=== PATIENT | female | born 1990 | race American Indian/Alaskan Native ===

== ENCOUNTER 2016-07-01 13:10 | Emergency (ER) | payer MEDICAID, OTHER ==
[2016-07-01 15:54] VITALS: BP 105/71
--- NOTE | 2016-07-01 16:58 | Emergency Department Report ---
Entered by LINDSAY CASTILLO, acting as scribe for KAIN PIERSON PA. - General Chief complaint: Skin/Abscess/Foreign Body Stated complaint: RISEN UNDER BILAT ARMS/BUG BITES Time Seen by Provider: 07/01/16 14:59 Source: patient Mode of arrival: Ambulatory Limitations: No Limitations - History of Present Illness Initial comments: 26 y/o female presents c/o bilateral axillary lesions that have been going on intermittently for years. Sx include drainage from an open, right axillary lesion but pt denies fever, N/V or any other drainage sites. No additional Sx MD complaint: abscess/boil -: week(s) (1) Location: LUE (axillary region), RUE (axillary region) Severity: mild Quality: constant Consistency: constant Improves with: none Context: other (lesions occured after shaving axillary region) Treatments Prior to Arrival: none - Related Data Previous Rx's Medication Instructions Recorded Last Taken Type Amoxicillin/K Clav Tab [Augmentin 1 tab PO Q12HR #20 tab 10/27/14 Unknown Rx 875MG TAB] Fluticasone [Flonase] 2 spray NS QDAY #1 bottle 10/27/14 Unknown Rx Loratadine [Claritin] 10 mg PO DAILY #30 tablet 10/27/14 Unknown Rx Promethazine /Codeine 5 ml PO Q6H PRN #150 udc 10/27/14 Unknown Rx [Phenergan/Codeine 6.25-10 mg/5 ml] predniSONE [Deltasone] 40 mg PO QDAY #10 tab 10/27/14 Unknown Rx Ibuprofen [Motrin 800 MG tab] 800 mg PO Q8HR PRN #30 tablet 07/01/16 Unknown Rx Sulfamethoxazole/Trimethoprim 1 each PO BID #20 tablet 07/01/16 Unknown Rx [Bactrim DS TAB] Allergies Allergy/AdvReac Type Severity Reaction Status Date / Time No Known Allergies Allergy Verified 05/08/13 14:32 Abscess Boil HPI - HPI Chief Complaint: Skin/Abscess/Foreign Body Stated Complaint: RISEN UNDER BILAT ARMS/BUG BITES Time Seen by Provider: 07/01/16 14:59 Home Medications: Previous Rx's Medication Instructions Recorded Last Taken Type Amoxicillin/K Clav Tab [Augmentin 1 tab PO Q12HR #20 tab 10/27/14 Unknown Rx 875MG TAB] Fluticasone [Flonase] 2 spray NS QDAY #1 bottle 10/27/14 Unknown Rx Loratadine [Claritin] 10 mg PO DAILY #30 tablet 10/27/14 Unknown Rx Promethazine /Codeine 5 ml PO Q6H PRN #150 udc 10/27/14 Unknown Rx [Phenergan/Codeine 6.25-10 mg/5 ml] predniSONE [Deltasone] 40 mg PO QDAY #10 tab 10/27/14 Unknown Rx Ibuprofen [Motrin 800 MG tab] 800 mg PO Q8HR PRN #30 tablet 07/01/16 Unknown Rx Sulfamethoxazole/Trimethoprim 1 each PO BID #20 tablet 07/01/16 Unknown Rx [Bactrim DS TAB] Allergies/Adverse Reactions: Allergies Allergy/AdvReac Type Severity Reaction Status Date / Time No Known Allergies Allergy Verified 05/08/13 14:32 ED Review of Systems Comment: All other systems reviewed and negative Constitutional: denies: fever Gastrointestinal: denies: nausea, vomiting Skin: other (drainage from one lesiono on right axillary region) ED Past Medical Hx - Past Medical History Hx Hypertension: Yes (PIH) Hx Congestive Heart Failure: No Hx Diabetes: No Hx Deep Vein Thrombosis: No Hx Renal Disease: No Hx Sickle Cell Disease: No Hx Seizures: No Hx Asthma: No Hx COPD: No Hx HIV: No - Social History Smoking Status: Never Smoker Substance Use Type: None - Medications Home Medications: Home Medications Medication Instructions Recorded Confirmed Last Taken Type Amoxicillin/K Clav Tab [Augmentin 1 tab PO Q12HR #20 tab 10/27/14 Unknown Rx 875MG TAB] Fluticasone [Flonase] 2 spray NS QDAY #1 bottle 10/27/14 Unknown Rx Loratadine [Claritin] 10 mg PO DAILY #30 tablet 10/27/14 Unknown Rx Promethazine /Codeine 5 ml PO Q6H PRN #150 udc 10/27/14 Unknown Rx [Phenergan/Codeine 6.25-10 mg/5 ml] predniSONE [Deltasone] 40 mg PO QDAY #10 tab 10/27/14 Unknown Rx Ibuprofen [Motrin 800 MG tab] 800 mg PO Q8HR PRN #30 tablet 07/01/16 Unknown Rx Sulfamethoxazole/Trimethoprim 1 each PO BID #20 tablet 07/01/16 Unknown Rx [Bactrim DS TAB] ED Physical Exam - General Limitations: No Limitations - Other Other exam information: GENERAL: Patient is alert and oriented x 3. No apparent distress, normal gait, atraumatic. HEAD: Head is normocephalic and atraumatic. EYES: Extraocular movements are intact. NECK: Supple. Non edematous, no carotid bruits. No lymphadenopathy or thyromegaly. LUNGS: Symmetrical with respiration. No wheezing, rales or crackles, CTAB. HEART: Regular rate and rhythm with normal S1/S2 present. No murmurs, rubs, or gallops. ABDOMEN: Soft, nondistended. Nontender to palpation on all quadrants. No organomegaly was noted. Positive bowel sounds. No CVA tenderness. EXTREMITIES/MUSCULOSKELETAL: No cyanosis, clubbing, rash, lesions or edema. Full ROM bilaterally. UE/LE Pulses 2+ bilaterally. LE and UE 5+ strength bilaterally SKIN: Warm and dry, no ulceration or induration present. Bilateral axillary lesions closed, right open axillary lesion, no active drainage, no swelling, no erythema. Eyes, will comply, close lesions in the axilla bilaterally. Nontender to palpation NEUROLOGIC: No focal deficit. ED Course Vital Signs 07/01/16 14:40 Temperature 98 F Pulse Rate 65 Respiratory 20 Rate Blood Pressure 130/78 O2 Sat by Pulse 100 Oximetry ED Medical Decision Making - Medical Decision Making 26-year-old female presents with adenitis Discussed with patient take medication as prescribed Discussed with patient to follow up with PCP as referred, and to return to the ED if her symptoms return or worsen. Patient states understanding and will follow instructions. Vital signs stable, patient is in no acute distress. ED Disposition Clinical Impression: Axillary adenitis Disposition: DISCHARGED TO HOME OR SELFCARE Is pt being admited?: No Does the pt Need Aspirin: No Condition: Stable Instructions: Adenitis (ED) Prescriptions: Ibuprofen [Motrin 800 MG tab] 800 mg PO Q8HR PRN #30 tablet PRN Reason: Pain Sulfamethoxazole/Trimethoprim [Bactrim DS TAB] 1 each PO BID #20 tablet Referrals: PRIMARY MD DAVID [Primary Care Provider] - 3-5 Days DEONTE MEDELLIN MD [Referring] - 3-5 Days [facility] [Outside] - 3-5 Days [facility] [Outside] - 3-5 Days [facility] [Outside] - 3-5 Days [facility] [Outside] - 3-5 Days Forms: Work/School Release Form(ED) Time of Disposition: 15:30 This documentation as recorded by the ANNA zaman RYAN,accurately reflects the service I personally performed and the decisions made by ,KAIN PIERSON PA.
== END 2016-07-01 15:54 | disposition home or self-care (01) ==
LOC: ED 13:10
DX: I88.9 Nonspecific lymphadenitis, unspecified (principal); I10 Essential (primary) hypertension
CPT/HCPCS: 99282

== ENCOUNTER 2017-01-26 06:23 | Emergency (ER) | payer MEDICAID ==
[2017-01-26 07:21] LABS: Basophils % (Auto) 0.7 % (0.0-1.8); Eosinophils % (Auto) 1.8 % (0.0-4.3); Hematocrit 35.5 % (30.3-42.9); Hemoglobin 11.5 gm/dl (10.1-14.3); Mean Corpuscular HGB Conc 32 % (30-34); Mean Corpuscular Volume 79 fl (79-97); Platelet Count 260 K/mm3 (140-440); Red Cell Distribution Width 15.6 % (13.2-15.2); White Blood Count 6.4 K/mm3 (4.5-11.0)
[2017-01-26 07:22] LABS: Mean Corpuscular Hemoglobin 26 pg (28-32)
[2017-01-26 07:41] LABS: Anion Gap 17 mmol/L; BUN/Creatinine Ratio 17; Blood Urea Nitrogen 10 mg/dL (7-17); Calcium 9.3 mg/dL (8.4-10.2); Carbon Dioxide 26 mmol/L (22-30); Chloride 101.4 mmol/L (98-107); Glucose 99 mg/dL (65-100); Potassium 4.4 mmol/L (3.6-5.0); Sodium 140 mmol/L (137-145)
[2017-01-26] MEDS ORDERED: TORADOL IM ONE (10:51)
--- NOTE | 2017-01-26 11:02 | Emergency Department Report ---
ED Chest Pain HPI - General Chief Complaint: Upper Respiratory Infection Stated Complaint: CP Time Seen by Provider: 01/26/17 10:18 Source: patient Mode of arrival: Ambulatory Limitations: No Limitations - History of Present Illness Initial Comments: 26 year old female with a history of -induced hypertension presents to the hospital with complaints of chest pain since 1:00 last night. Pain is sharp , parasternal, worse with deep inspiration, movement in certain positions, and stretching. Pain is rated moderate in intensity. No complaints of shortness of breath, nausea, vomiting, calf tenderness, edema, recent travel, control pill use, or history of previous PE/DVT. Patient added that she had abnormal vaginal discharge 2 weeks and sexually active with one partner previously and did not use condoms Severity scale (0 -10): 8 - Related Data Previous Rx's Medication Instructions Recorded Last Taken Type Amoxicillin/K Clav Tab [Augmentin 1 tab PO Q12HR #20 tab 10/27/14 Unknown Rx 875MG TAB] Fluticasone [Flonase] 2 spray NS QDAY #1 bottle 10/27/14 Unknown Rx Loratadine [Claritin] 10 mg PO DAILY #30 tablet 10/27/14 Unknown Rx Promethazine /Codeine 5 ml PO Q6H PRN #150 udc 10/27/14 Unknown Rx [Phenergan/Codeine 6.25-10 mg/5 ml] predniSONE [Deltasone] 40 mg PO QDAY #10 tab 10/27/14 Unknown Rx Sulfamethoxazole/Trimethoprim 1 each PO BID #20 tablet 07/01/16 Unknown Rx [Bactrim DS TAB] Ibuprofen [Motrin 800 MG tab] 800 mg PO Q8HR PRN #30 tablet 01/26/17 Unknown Rx traMADol [Ultram 50 MG tab] 50 mg PO Q6HR PRN #20 tablet 01/26/17 Unknown Rx Allergies Allergy/AdvReac Type Severity Reaction Status Date / Time No Known Allergies Allergy Verified 05/08/13 14:32 Heart Score - HEART Score History: Slightly suspicious EKG: Normal Age: < 45 Risk factors: No known risk factors Troponin: < normal limit HEART Score: 0 ED Review of Systems ROS: Stated complaint: CP Other details as noted in HPI Comment: All other systems reviewed and negative Other: Constitutional: No fevers chills Eyes: No eye pain visual changes ENT: No ear pain or throat pain Neck: Denies pain Respiratory: Denies cough wheezing shortness Cardiovascular: Denies palpitations, syncope GI: Denies abdominal pain, nausea, vomiting, diarrhea : Denies dysuria Musculoskeletal: Denies back pain Skin: Denies rash, lesions, erythema Neurologic: Denies headache, numbness, weakness Psychiatric: Denies suicidal ideation, hallucinations ED Past Medical Hx - Past Medical History Hx Hypertension: Yes (PIH) Hx Congestive Heart Failure: No Hx Diabetes: No Hx Deep Vein Thrombosis: No Hx Renal Disease: No Hx Sickle Cell Disease: No Hx Seizures: No Hx Asthma: No Hx COPD: No Hx HIV: No - Surgical History Past Surgical History?: No - Social History Smoking Status: Never Smoker Substance Use Type: Alcohol, Marijuana - Medications Home Medications: Home Medications Medication Instructions Recorded Confirmed Last Taken Type Amoxicillin/K Clav Tab [Augmentin 1 tab PO Q12HR #20 tab 10/27/14 Unknown Rx 875MG TAB] Fluticasone [Flonase] 2 spray NS QDAY #1 bottle 10/27/14 Unknown Rx Loratadine [Claritin] 10 mg PO DAILY #30 tablet 10/27/14 Unknown Rx Promethazine /Codeine 5 ml PO Q6H PRN #150 udc 10/27/14 Unknown Rx [Phenergan/Codeine 6.25-10 mg/5 ml] predniSONE [Deltasone] 40 mg PO QDAY #10 tab 10/27/14 Unknown Rx Sulfamethoxazole/Trimethoprim 1 each PO BID #20 tablet 07/01/16 Unknown Rx [Bactrim DS TAB] Ibuprofen [Motrin 800 MG tab] 800 mg PO Q8HR PRN #30 tablet 01/26/17 Unknown Rx traMADol [Ultram 50 MG tab] 50 mg PO Q6HR PRN #20 tablet 01/26/17 Unknown Rx ED Physical Exam - General Limitations: No Limitations - Other Other exam information: General: No limitations, patient is alert in no acute distress Head exam: Atraumatic, normocephalic Eyes exam: Normal appearanc ENT: Moist mucous membrane, normal oropharynx Neck exam: Normal inspection, full range of motion, no meningismus nontender Respiratory exam: Clear to auscultation bilateral, no wheezes, rales, crackles Cardiovascular: Normal rate and rhythm, normal heart sounds, mild tenderness left parasternal area Abdomen: Soft, nondistended, and nontender, with normal bowel sounds, no rebound, or guarding exam: Declined Extremity: Full range of motion normal inspection no deformity, no calf tenderness or edema Back: Normal Inspection, full range of motion, no tenderness Neurologic: Alert, oriented x3, cranial nerves intact, no motor or sensory deficit Psychiatric: normal affect, normal mood Skin: Warm, dry, intact ED Course Vital Signs 01/26/17 01/26/17 01/26/17 06:37 07:03 07:57 Temperature 98.5 F 98.5 F 98.4 F Pulse Rate 90 90 80 Respiratory 18 16 16 Rate Blood Pressure 121/78 Blood Pressure 125/79 [Left] Blood Pressure 121/78 [Right] O2 Sat by Pulse 100 100 99 Oximetry 01/26/17 10:14 Temperature Pulse Rate 84 Respiratory 16 Rate Blood Pressure Blood Pressure 121/76 [Left] Blood Pressure [Right] O2 Sat by Pulse 100 Oximetry - Reevaluation(s) Reevaluation #1: 01/26/17 10:54 Toradol IM ordered for pain. Chest x-ray ordered. Patient declined pelvic exam because she needs to leave for previously scheduled appointment YADIRA score - Yadira Score Age > 65: (0) No Aspirin use within the Past 7 Days: (0) No 3 or more CAD Risk Factors: (0) No 2 or more Angina events in past 24 hrs: (0) No Known CAD with more than 50% Stenosis: (0) No ST Deviation Greater than 0.5mm: (0) No ED Medical Decision Making - Lab Data Result diagrams: 01/26/17 07:12 01/26/17 07:12 Lab Results 01/26/17 01/26/17 01/26/17 Range/Units 07:12 07:12 07:12 WBC 6.4 (4.5-11.0) K/mm3 RBC 4.50 (3.65-5.03) M/mm3 Hgb 11.5 (10.1-14.3) gm/dl Hct 35.5 (30.3-42.9) % MCV 79 (79-97) fl MCH 26 L (28-32) pg MCHC 32 (30-34) % RDW 15.6 H (13.2-15.2) % Plt Count 260 (140-440) K/mm3 Lymph % (Auto) 39.4 H (13.4-35.0) % Morris % (Auto) 5.9 (0.0-7.3) % Eos % (Auto) 1.8 (0.0-4.3) % Baso % (Auto) 0.7 (0.0-1.8) % Lymph # 2.5 (1.2-5.4) K/mm3 Morris # 0.4 (0.0-0.8) K/mm3 Eos # 0.1 (0.0-0.4) K/mm3 Baso # 0.0 (0.0-0.1) K/mm3 Seg Neutrophils % 52.2 (40.0-70.0) % Seg Neutrophils # 3.3 (1.8-7.7) K/mm3 Sodium 140 (137-145) mmol/L Potassium 4.4 (3.6-5.0) mmol/L Chloride 101.4 (98-107) mmol/L Carbon Dioxide 26 (22-30) mmol/L Anion Gap 17 mmol/L BUN 10 (7-17) mg/dL Creatinine 0.6 L (0.7-1.2) mg/dL Estimated GFR > 60 ml/min BUN/Creatinine Ratio 17 % Glucose 99 (65-100) mg/dL Calcium 9.3 (8.4-10.2) mg/dL Troponin T < 0.010 (0.00-0.029) ng/mL HCG, Quant < 2 (0-4) mIU/mL - EKG Data -: EKG Interpreted by Ga EKG shows normal: sinus rhythm, axis (qrs 40), QRS complexes (102), ST-T waves ( no stemi/t wave inv) Rate: normal (75) - EKG Data When compared to previous EKG there are: previous EKG unavailable - Radiology Data Radiology results: report reviewed (cxr 2 view: unremarkable) - Medical Decision Making Plan to discharge patient home with symptomatic treatment for muscular skeletal chest pain. EKG unremarkable, labs are unremarkable, chest x-ray unremarkable, no DVT symptoms. No DVT/PE risk factors. - Differential Diagnosis costochondritis, PE, pleurisy, pneumothorax, [facility] Critical Care Time: No Critical care attestation.: If time is entered above; I have spent that time in minutes in the direct care of this critically ill patient, excluding procedure time. ED Disposition Clinical Impression: Costochondritis, acute Disposition: DC-01 TO HOME OR SELFCARE Is pt being admited?: No Does the pt Need Aspirin: No Condition: Stable Instructions: Costochondritis (ED) Additional Instructions: Taken medication as needed for pain. Return if symptoms worsen Prescriptions: Ibuprofen [Motrin 800 MG tab] 800 mg PO Q8HR PRN #30 tablet PRN Reason: Pain traMADol [Ultram 50 MG tab] 50 mg PO Q6HR PRN #20 tablet PRN Reason: Pain Referrals: [facility] [Provider Group] - 3-5 Days DANIELA ARREDONDO MD, PHD [Staff Physician] - 3-5 Days Time of Disposition: 11:43
--- NOTE | 2017-01-26 11:31 | XRay Report ---
ROUTINE CHEST, TWO VIEWS: HISTORY: chest pain. The trachea, heart, mediastinal contour, lung dewitt and bony thorax are unremarkable. IMPRESSION: Unremarkable chest x-ray.
[2017-01-26 12:28] VITALS: BP 121/75
== END 2017-01-26 12:28 | disposition home or self-care (01) ==
LOC: ED 06:23
DX: M94.0 Chondrocostal junction syndrome [Tietze] (principal); I10 Essential (primary) hypertension; Z12.10 Encounter for screening for malignant neoplasm of intestinal tract, unspecified
CPT/HCPCS: 36415; 71020; 80048; 84484; 84702; 85025; 93005; 93010; 96372; 99284; J1885

== ENCOUNTER 2018-08-23 23:02 | Emergency (ER) | payer MEDICAID, OTHER ==
[2018-08-24 00:49] LABS: Basophils % (Auto) 0.3 % (0.0-1.8); Eosinophils % (Auto) 0.1 % (0.0-4.3); Hematocrit 35.6 % (30.3-42.9); Hemoglobin 11.9 gm/dl (10.1-14.3); Lymphocytes # (Auto) 1.8 K/mm3 (1.2-5.4); Lymphocytes % (Auto) 25.7 % (13.4-35.0); Mean Corpuscular HGB Conc 33 % (30-34); Mean Corpuscular Volume 79 fl (79-97); Monocytes # (Auto) 0.5 K/mm3 (0.0-0.8); Monocytes % (Auto) 7.7 % (0.0-7.3); Platelet Count 226 K/mm3 (140-440); Red Blood Count 4.49 M/mm3 (3.65-5.03); Red Cell Distribution Width 14.7 % (13.2-15.2)
[2018-08-24 01:13] LABS: Alanine Aminotransferase 11 units/L (7-56); Albumin 4.2 g/dL (3.9-5); BUN/Creatinine Ratio 11; Blood Urea Nitrogen 10 mg/dL (7-17); Calcium 9.6 mg/dL (8.4-10.2); Hemolysis Index 0
[2018-08-24 03:49] LABS: Bilirubin,Urine NEG (Negative); Blood,Urine SM (Negative); Color,Urine Yellow (Yellow); Mucus,Urine FEW /HPF; WBC,Urine > 182.0 /HPF (0.0-6.0)
[2018-08-24] MEDS ORDERED: MACROBID PO ONE (04:18)
--- NOTE | 2018-08-24 04:42 | Ultrasound Report ---
PROCEDURE: US OB <= 14 WEEKS FETUS TECHNIQUE: Real-time transabdominal sonography of the uterus, placenta, amniotic fluid, adnexa, and fetus was performed with image documentation. Measurements were obtained to determine age/size. M-mode Doppler was used to document heartbeat. ADDITIONAL GESTATION: None. HISTORY: , abd pain COMPARISONS: None . FINDINGS: The uterus size is 6.7 x 4.4 x 5.3 cm. There is a small gestational sac identified within the lower u terine segment. This measures up to 8 mm. No evidence of a pole or yolk sac. Both ovaries have a normal size and echogenicity. There is a cystic region on the left ovary this measures up to 21 mm. The findings may represent multiple etiologies including early or failure. Follow -up studies may be required and could include serial beta-hCG levels and repeat ultrasound in approxi mately 14 days IMPRESSION: There is a small gestational sac identified in the lower uterus. This measures up to 8 mm . The findings may indicate early or failure. Follow-up study may be needed in th is patient as described. There is a dominant cyst on the left ovary this measures up to 21 mm. This document is electronically signed by Martha Marcano DO., August 24 2018 04:40:18 AM ET
--- NOTE | 2018-08-24 05:00 | Emergency Department Report ---
HPI - General Chief Complaint: Abdominal Pain Time Seen by Provider: 08/24/18 02:54 - HPI HPI: 28-year-old female presents to the emergency department with a complaint of lower abdominal and/or pelvic pain as well as some intermittent sub jective fevers and been going on since Tuesday, 3 days ago. Patient says that she was eating at the [employer] and was unable to finish her meal because of the discomfort. She denies any nausea, vomiting. She was given a dose of Mucinex by her grandmother to treat her symptoms. Patient has been having some dysuria and thinks she might have a urinary tract infection. Her last menstrual cycle was about July 24. No recent travel or sick contacts at home. ED Past Medical Hx - Past Medical History Previous Medical History?: Yes Hx Hypertension: Yes (PIH) Hx Congestive Heart Failure: No Hx Diabetes: No Hx Deep Vein Thrombosis: No Hx Renal Disease: No Hx Sickle Cell Disease: No Hx Seizures: No Hx Asthma: No Hx COPD: No Hx HIV: No - Surgical History Past Surgical History?: No - Social History Smoking Status: Current Every Day Smoker Substance Use Type: None - Medications Home Medications: Home Medications Medication Instructions Recorded Confirmed Last Taken Type Amoxicillin/K Clav Tab [Augmentin 1 tab PO Q12HR #20 tab 10/27/14 Unknown Rx 875MG TAB] Fluticasone [Flonase] 2 spray NS QDAY #1 bottle 10/27/14 Unknown Rx Loratadine [Claritin] 10 mg PO DAILY #30 tablet 10/27/14 Unknown Rx Promethazine /Codeine 5 ml PO Q6H PRN #150 udc 10/27/14 Unknown Rx [Phenergan/Codeine 6.25-10 mg/5 ml] predniSONE [Deltasone] 40 mg PO QDAY #10 tab 10/27/14 Unknown Rx Sulfamethoxazole/Trimethoprim 1 each PO BID #20 tablet 07/01/16 Unknown Rx [Bactrim DS TAB] Ibuprofen [Motrin 800 MG tab] 800 mg PO Q8HR PRN #30 tablet 01/26/17 Unknown Rx traMADol [Ultram 50 MG tab] 50 mg PO Q6HR PRN #20 tablet 01/26/17 Unknown Rx Nitrofurantoin [place]/M-Cryst 100 mg PO Q12HR #14 capsule 08/24/18 Unknown Rx [Macrobid CAP] Vit-Fe Fumar-FA [ 1 tab PO QDAY #30 tablet 08/24/18 Unknown Rx Vitamin] ED Review of Systems ROS: Stated complaint: STOMACH PAIN FEVER Other details as noted in HPI Comment: All other systems reviewed and negative Constitutional: fever (subjective). denies: malaise Eyes: denies: eye pain, vision change ENT: denies: ear pain, throat pain Respiratory: denies: cough, shortness of breath Cardiovascular: denies: chest pain, palpitations Gastrointestinal: abdominal pain. denies: nausea, vomiting Genitourinary: dysuria. denies: discharge Musculoskeletal: denies: back pain, arthralgia Skin: denies: rash, lesions Neurological: denies: headache, weakness Physical Exam - Physical Exam Vital Signs: Vital Signs 08/23/18 23:38 Temperature 99.2 F Pulse Rate 103 H Respiratory 16 Rate Blood Pressure 127/78 O2 Sat by Pulse 100 Oximetry Physical Exam: GENERAL: The patient is well-developed well-nourished. HENT: Normocephalic. Atraumatic. Patient has moist mucous membranes. EYES: Extraocular motions are intact. NECK: Supple. Trachea is midline. CHEST/LUNGS: Clear to auscultation. There is no respiratory distress noted. HEART/CARDIOVASCULAR: Regular. There is no tachycardia. There is no murmur. ABDOMEN: Abdomen is soft. There is some mild lower abdominal tenderness to palpation. No guarding. Patient has normal bowel sounds. There is no abdominal distention. SKIN: Skin is warm and dry. NEURO: The patient is awake, alert, and oriented. The patient is cooperative. The patient has no focal neurologic deficits. The patient has normal speech. MUSCULOSKELETAL: There is no tenderness or deformity. There is no limitation range of motion. There is no evidence of acute injury. ED Course Vital Signs 08/23/18 23:38 Temperature 99.2 F Pulse Rate 103 H Respiratory 16 Rate Blood Pressure 127/78 O2 Sat by Pulse 100 Oximetry ED Medical Decision Making - Lab Data Result diagrams: 08/24/18 00:37 08/24/18 00:37 - Radiology Data Radiology results: report reviewed PROCEDURE: US OB <= 14 WEEKS FETUS TECHNIQUE: Real-time transabdominal sonography of the uterus, placenta, amniotic fluid, adnexa, and fetus was performed with image documentation. Measurements were obtained to determine age/size. M-mode Doppler was used to document heartbeat. ADDITIONAL GESTATION: None. HISTORY: , abd pain COMPARISONS: None . FINDINGS: The uterus size is 6.7 x 4.4 x 5.3 cm. There is a small gestational sac identified within the lower uterine segment. This measures up to 8 mm. No evidence of a pole or yolk sac. Both ovaries have a normal size and echogenicity. There is a cystic region on the left ovary this measures up to 21 mm. The findings may represent multiple etiologies including early or failure. Follow-up studies may be required and could include serial beta-hCG levels and repeat ultrasound in approximately 14 days IMPRESSION: There is a small gestational sac identified in the lower uterus. This measures up to 8 mm. The findings may indicate early or failure. Follow-up study may be needed in this patient as described. There is a dominant cyst on the left ovary this measures up to 21 mm. This document is electronically signed by Jerman Marcano DO., August 24 2018 04:40:18 AM ET Transcribed By: [facility] Dictated By: JERMAN MARCANO MD Electronically Authenticated By: JERMAN MARCANO MD Signed Date/Time: 08/24/18 0442 - Medical Decision Making This patient presented to the emergency department with a complaint of some lower abdominal and pelvic pain along with some intermittent subjective fever, over the past few days. As part of workup, the patient was found to have a positive urine test. The urinalysis also shows a significant urinary tract infection. The beta-hCG was only 12. A transvaginal/ ultrasound was done that shows a gestational sac but no yolk sac or pole and was read by radiology as a very early versus failure. Patient was given a dose of Macrobid for her urinary tract infection. All of the lab and imaging results were discussed with the patient. She understands the need to follow-up in 3-5 days with [facility] for repeat hormone level. If the beta-hCG is increasing, this may be a very, very, early . If it is decreasing, then this is most likely a failure. She will return to the emergency Department with any worsening of her symptoms, development of vaginal bleeding, or with any acute distress. She was started on Macrobid, vitamins and we discussed using Tylenol for discomfort. Otherwise she will avoid any other medications that are not prescribed by a physician. - Differential Diagnosis , miscarriage, ovarian cyst, UTI Critical Care Time: No Critical care attestation.: If time is entered above; I have spent that time in minutes in the direct care of this critically ill patient, excluding procedure time. ED Disposition Clinical Impression: UTI (urinary tract infection) Qualifiers: Urinary tract infection type: acute cystitis Hematuria presence: without hematuria Qualified Code(s): N30.00 - Acute cystitis without hematuria Qualifiers: Weeks of gestation: less than 8 weeks Qualified Code(s): Z3A.01 - Less than 8 weeks gestation of Disposition: TO HOME OR SELFCARE Is pt being admited?: No Condition: Stable Instructions: (ED), Urinary Tract Infection in Women (ED), Abdominal Pain (ED) Additional Instructions: Please follow up with an [facility] in the next 3-5 days. You'll need a repeat hormone level, and possibly a repeat ultrasound. If the hormone level is increasing, this may just be a very early . If the hormone level is decreasing, this could be an impending failure. Return to the emergency Department with any worsening of your symptoms, development of vaginal bleeding, or with any acute distress. Take the antibiotics as prescribed for urinary tract infection. You can take Tylenol every 4-6 hours, using weight-based dosing, as needed for any fever or discomfort. I am starting you on vitamins. Otherwise do not take any medications that are not prescribed by a physician. Prescriptions: Nitrofurantoin [place]/M-Cryst [Macrobid CAP] 100 mg PO Q12HR #14 capsule Vit-Fe Fumar-FA [ Vitamin] 1 tab PO QDAY #30 tablet Referrals: [facility] [Provider Group] - 3-5 Days [facility] [Provider Group] - 3-5 Days [facility] [Provider Group] - 3-5 Days Time of Disposition: 05:00
--- NOTE | 2018-08-24 05:10 | Ultrasound Report ---
PROCEDURE: US OB TRANSVAGINAL TECHNIQUE: Real-time transabdominal sonography of the uterus, placenta, amniotic fluid, adnexa, and fetus was performed with image documentation. Measurements were obtained to determine age/size. M-mode Doppler was used to document heartbeat. ADDITIONAL GESTATION: None. HISTORY: , abd pain COMPARISONS: None . FINDINGS: The uterus size is 6.7 x 4.4 x 5.3 cm. There is a small gestational sac identified within the lower u terine segment. This measures up to 8 mm. No evidence of a pole or yolk sac. Both ovaries have a normal size and echogenicity. There is a cystic region on the left ovary this measures up to 21 mm. The findings may represent multiple etiologies including early or failure. Follow -up studies may be required and could include serial beta-hCG levels and repeat ultrasound in approxi mately 14 days IMPRESSION: There is a small gestational sac identified in the lower uterus. This measures up to 8 mm . The findings may indicate early or failure. Follow-up study may be needed in th is patient as described. There is a dominant cyst on the left ovary this measures up to 21 mm. This document is electronically signed by Martha Marcano DO., August 24 2018 05:08:27 AM ET
[2018-08-24 06:43] VITALS: BP 115/62
== END 2018-08-24 04:45 | disposition home or self-care (01) ==
LOC: ED 23:02
DX: O23.41 Unspecified infection of urinary tract in pregnancy, first trimester (principal); Z3A.01 Less than 8 weeks gestation of pregnancy; O16.1 Unspecified maternal hypertension, first trimester; O99.331 Smoking (tobacco) complicating pregnancy, first trimester
CPT/HCPCS: 36415; 76801; 76817; 80053; 81001; 84702; 84703; 85025